=== PATIENT | female | born 1940 | race Caucasian/White ===

== ENCOUNTER → 2017-05-26 | Day surgery (SDC) | payer MEDICARE ==
[~2017-05-26] MED LIST: AMLO5TAB96 PO; LACTATED RINGER'S 1000 ML INJ 1,000 ML ONE; PROPOFOL 500 MG/50 ML BTL IV ONE; TOPR50TA PO
--- NOTE | 2017-05-26 10:49 | GIPROC ---
[facility] [address] [facility], [address] EGD PROCEDURE REPORT EXAM DATE: 05/26/2017 PATIENT NAME: Park Henley MR #: [id number] BIRTHDATE: 1940 ATTENDING: Shyanne Dash MD ORDER #: [id number] SPECIFICATIONS WRITER: Ivonne Mckinney RN STATUS: outpatient INDICATIONS: The patient is a 76 yr old female here for an EGD due to history of esophageal reflux PROCEDURE PERFORMED: EGD w/ biopsy MEDICATIONS: None and Per Anesthesia. TOPICAL ANESTHETIC: CONSENT: The patient understands the risks and benefits of the procedure and understands that these risks include, but are not limited to: sedation, allergic reaction, infection, perforation and/or bleeding. Alternative means of evaluation and treatment include, among others: physical exam, x-rays, and/or surgical intervention. The patient elects to proceed with this endoscopic procedure. medical equipment was checked for proper function. Hand hygiene and appropriate measures for infection prevention was taken. After the risks, benefits and alternatives of the procedure were thoroughly explained, Informed consent was verified, confirmed and timeout was successfully executed by the treatment team. The patient was anesthetized with topical anesthesia and the EC-3490Li ([id number]) endoscope was introduced through the mouth and advanced to the second portion of the duodenum. Retroflexed views revealed a hiatal hernia The gastroscope was then slowly withdrawn and removed. ESOPHAGUS: There was LA Class A esophagitis noted. A biopsy was performed using cold forceps. Sample sent for histology. STOMACH: There was erythematous moderate gastritis in the gastric antrum. A biopsy was performed using cold forceps. Sample sent for histology. DUODENUM: The duodenal mucosa appeared normal in the bulb and second portion of the duodenum. ADVERSE EVENTS: There were no complications. IMPRESSIONS: 1. There was LA Class A esophagitis noted; biopsy was performed 2. There was erythematous gastritis in the gastric antrum; biopsy was performed 3. Normal duodenal mucosa in the bulb and second portion of the duodenum 4. Retroflexed views revealed a hiatal hernia RECOMMENDATIONS: 1. Await biopsy results. Biopsy results will not be ready for 7-10 days. If you don't hear from us in two weeks, call our office for biopsy results. 2. Anti-reflux regimen 3. Continue PPI 4. Avoid NSAIDS PATIENT CONDITION: stable DISPOSITION: Home REPEAT EXAM: Return 1 year EGD pending biopsy results Shyanne Dash MD eSigned: Shyanne Dash MD 05/26/2017 10:48 AM cc: [facility] M.D[facility] PATIENT NAME: Park Henley MR#: [id number]
--- NOTE | 2017-05-26 11:02 | GIPROC ---
[facility] [address] [facility], [address] COLONOSCOPY PROCEDURE REPORT EXAM DATE: 05/26/2017 PATIENT NAME: Park Henley MR #: [id number] BIRTHDATE: 1940 ENDOSCOPIST: Shyanne Dash MD ORDER #: [id number] FLIGHT ATTENDANT/INFLIGHT MANAGER: Ivonne Mckinney RN STATUS: outpatient INDICATIONS: The patient is a 76 yr old female here for a colonoscopy due to average risk patient for colorectal cancer PROCEDURE PERFORMED: Colonoscopy, diagnostic MEDICATIONS: None and Per Anesthesia. PREP QUALITY: The [place] Bowel Prep Score was Right colon 3, Mid colon 2, and Left colon 3. Total = 8. ESTIMATED BLOOD LOSS: None CONSENT: The patient understands the risks and benefits of the procedure and understands that these risks include, but are not limited to: sedation, allergic reaction, infection, perforation and/or bleeding. Alternative means of evaluation and treatment include, among others: physical exam, x-rays, and/or surgical intervention. The patient elects to proceed with this endoscopic procedure. medical equipment was checked for proper function. Hand hygiene and appropriate measures for infection prevention was taken. After the risks, benefits and alternatives of the procedure were thoroughly explained, Informed consent was verified, confirmed and timeout was successfully executed by the treatment team. A digital exam revealed external hemorrhoids The EC-3490Li ([id number]) endoscope was introduced through the anus and advanced to the cecum, which was identified by both the appendix and ileocecal valve. The instrument was then slowly withdrawn as the colon was fully examined. COLON FINDINGS: Moderate diverticulosis was noted in the sigmoid colon. No bleeding was noted from the diverticulosis. Retroflexed views revealed internal hemorrhoids and Retroflexed views revealed medium internal hemorrhoids The scope was then completely withdrawn from the patient and the procedure terminated. PROCEDURE WITHDRAWAL TIME:6minutes ADVERSE EVENTS: There were no complications. IMPRESSIONS: 1. Moderate diverticulosis was noted in the sigmoid colon 2. Retroflexed views revealed internal hemorrhoids 3. Retroflexed views revealed medium internal hemorrhoids 4. Revealed external hemorrhoids RECOMMENDATIONS: 1. Benefiber 2 tsp daily 2. Continue surveillance 3. Yearly hemoccult 4. High fiber diet 5. No seeds, nuts and popcorn in diet RECALL: Return 5 years Colonoscopy Shyanne Dash MD eSigned: Shyanne Dash MD 05/26/2017 11:02 AM cc: Mary Toribio and [facility] Zamora M.D. PATIENT NAME: Park Henley MR#: [id number]
== END | disposition home or self-care (01) ==
LOC: ESDC 09:24
PROVIDERS: ATTEND Internal Medicine Gastroenterology
DX: Z12.11 Encounter for screening for malignant neoplasm of colon (principal); K64.4 Residual hemorrhoidal skin tags; K57.90 Diverticulosis of intestine, part unspecified, without perforation or abscess without bleeding; K64.8 Other hemorrhoids; K21.9 Gastro-esophageal reflux disease without esophagitis; K20.9 Esophagitis, unspecified; K29.70 Gastritis, unspecified, without bleeding; K44.9 Diaphragmatic hernia without obstruction or gangrene
CPT/HCPCS: 00740; 00810; 43239; 45378; 88305; J7120

== ENCOUNTER 2017-09-23 15:48 | Inpatient (IN) | payer MEDICARE ==
[~2017-09-23] VITALS: Ht 157.5 cm; Wt 49.4 kg
[~2017-09-23 15:48] MED LIST changes: -LACTATED RINGER'S 1000 ML INJ 1,000 ML ONE; -PROPOFOL 500 MG/50 ML BTL IV ONE
[2017-09-23 15:53] VITALS: BP 180/86; PULSE 79; RESP 16; TEMP 98.9; O2SAT 98
[2017-09-23 17:36] LABS: AUTOMATED NEUTROPHIL # 5.1 TH/MM3 (1.8-7.7); BASOPHIL # 0.1 TH/MM3 (0-0.2); BASOPHIL % 0.9 % (0.0-2.0); EOSINOPHIL # 0.1 TH/MM3 (0-0.4); EOSINOPHIL % 1.4 % (0.0-4.0); HEMATOCRIT 37.6 % (35.0-46.0); HEMOGLOBIN 12.6 GM/DL (11.6-15.3); LYMPHOCYTE # 1.7 TH/MM3 (1.0-4.8); MEAN CELL VOLUME 94.3 FL (80.0-100.0); MEAN CORPUSCULAR HEMOGLOBIN 31.7 PG (27.0-34.0); MEAN CORPUSCULAR HGB CONC 33.6 % (32.0-36.0); MEAN PLATELET VOLUME 6.7 FL (7.0-11.0); MONO % 9.9 % (0.0-8.0); MONOCYTE # 0.8 TH/MM3 (0-0.9); NEUT % 65.8 % (16.0-70.0); PLATELET COUNT 270 TH/MM3 (150-450); RED BLOOD COUNT 3.99 MIL/MM3 (4.00-5.30); RED CELL DISTRIBUTION WIDTH 12.8 % (11.6-17.2); WHITE BLOOD COUNT 7.7 TH/MM3 (4.0-11.0)
[2017-09-23 17:43] VITALS: BP 175/83; PULSE 64; RESP 16; TEMP 96.9; O2SAT 99
[2017-09-23 18:06] LABS: ALT (GPT) 23 U/L (10-53); AST (GOT) 29 U/L (15-37); BICARBONATE 26.3 MEQ/L (21.0-32.0); BLOOD UREA NITROGEN 15 MG/DL (7-18); CALCIUM 9.3 MG/DL (8.5-10.1); CHLORIDE 107 MEQ/L (98-107); CREATININE 0.92 MG/DL (0.50-1.00); GLOMERULAR FILTRATION RATE 59 ML/MIN (>89); GLUCOSE,RANDOM 88 MG/DL (74-106); SODIUM (NA) 140 MEQ/L (136-145)
[2017-09-23 18:15] LABS: ALKALINE PHOSPHATASE 64 U/L (45-117); TOTAL BILIRUBIN ADULT 1.4 MG/DL (0.2-1.0); TOTAL PROTEIN 8.1 GM/DL (6.4-8.2)
--- NOTE | 2017-09-23 19:51 | RADRPT ---
EXAM DATE/TIME: 09/23/2017 19:28 [place] COMPARISON: CT BRAIN W/O CONTRAST, April 13, 2011, 12:34. INDICATIONS : Altered mental status. RADIATION DOSE: 36.12 CTDIvol (mGy) ; Patient motion MEDICAL HISTORY : Dementia. Hypertension. SURGICAL HISTORY : Cholecystectomy. ENCOUNTER: Initial ACUITY: 1 day PAIN SCALE: 0/10 LOCATION: cranial TECHNIQUE: Multiple contiguous axial images were obtained of the head. Using automated exposure control and adj ustment of the mA and/or kV according to patient size, radiation dose was kept as low as reasonably a chievable to obtain optimal diagnostic quality images. DICOM format image data is available electro nically for review and comparison. FINDINGS: CEREBRUM: Atrophy. Extensive periventricular low attenuation change involving both cerebral hemispheres. The ve ntricles are normal for age. No evidence of midline shift, mass lesion, hemorrhage or acute infarcti on. No extra-axial fluid collections are seen. POSTERIOR FOSSA: The cerebellum and brainstem are intact. The 4th ventricle is midline. The cerebellopontine angle i s unremarkable. EXTRACRANIAL: The visualized portion of the orbits is intact. SKULL: The calvaria is intact. No evidence of skull fracture. CONCLUSION: 1. No acute intracranial abnormality. 2. Extensive chronic small vessel ischemic change. 3. Atrophy. Shankar Chairez Jr., MD on September 23, 2017 at 19:47 Board Certified Radiologist. This report was verified electronically.
[2017-09-23 20:07] LABS: BACTERIA, URINE RARE /hpf; BILIRUBIN, URINE NEG (NEG); BLOOD, URINE NEG (NEG); GLUCOSE,URINE NEG (NEG); KETONE, URINE NEG (NEG); NITRITE,URINE NEG (NEG); PH, URINE 6.5 (5.0-8.5); SQUAMOUS EPITHELIAL CELL URINE <1 /hpf (0-5); URINE COLOR LIGHT-YELLOW (YELLW/STRAW); URINE LEUKOCYTE ESTERASE LARGE (NEG)
[2017-09-23] MEDS ORDERED: MACR100C2 PO (21:14)
[2017-09-23] MEDS ORDERED: NITROFURANTOIN MONOHYD MACROCR 100 MG CAP PO ONE (21:15)
--- NOTE | 2017-09-23 22:13 | PD ---
HPI Chief Complaint: Medical Clearance Time Seen by Provider: 19:21 Travel History International Travel<30 days: No Contact w/Intl Traveler<30days: No Traveled to known affect area: No History of Present Illness HPI 77-year-old white female presents emergency department on a voluntary basis for psychological evaluation. The patient was advised by her psychologist to come in to be evaluated. The patient gone to see her psychologist earlier today because of progressive worsening problems with confusion and performing daily activities. She's been having worsening expressive aphasia. Symptoms of an slowly progressively getting worse over the past year. She's been having problems communicating with her family. Her family feels that she is taking too much Xanax. Family according to the patient drinks too much and does not involve himself in her care normally. Patient still drives. This was a concern of the family as well. Patient states that she has typically been able to care for everyone else but herself. She's having problems with some depression. She has not been eating the way she should. She states that she has not been taking care of herself the way she normally does. Patient denies any suicidal homicidal ideation. Patient does have some increased urinary frequency and some mild dysuria. She denies any recent illness. No fever or chills. No chest pain or shortness of breath. No nausea vomiting. No abdominal pain PFSH Past Medical History Arthritis: Yes (OSTEO) Autoimmune Disease: Yes (RA) Anxiety: Yes Cancer: No Cardiovascular Problems: Yes (HTN) Dementia: Yes Endocrine: No Genitourinary: Yes Hypertension: Yes Immune Disorder: Yes Kidney Stones: Yes (1979) Musculoskeletal: No Neurologic: No Psychiatric: Yes (CLAUSTROPHOBIA) Reproductive: No Respiratory: No Tetanus Vaccination: Unknown Influenza Vaccination: No Menopausal: Yes Past Surgical History Abdominal Surgery: No Cardiac Surgery: No Cholecystectomy: Yes Ear Surgery: No Endocrine Surgery: No Eye Surgery: No Genitourinary Surgery: Yes Gynecologic Surgery: No Joint Replacement: Yes (L hip replacement) Oral Surgery: No Thoracic Surgery: No Other Surgery: Yes (R KIDNEY) Social History Alcohol Use: No Tobacco Use: No Substance Use: No Allergies-Medications (Allergen,Severity, Reaction): Coded Allergies: No Known Allergies (Verified Allergy, Unknown, 09/23/17) Reported Meds & Prescriptions Reported Meds & Active Scripts Active Macrobid (Nitrofurantoin Monoh/Nitrofur Macro) 100 Mg Cap 100 Mg PO BID 7 Days Reported Norvasc (Amlodipine Besylate) 5 Mg Tab 5 Mg PO DAILY Toprol Xl (Metoprolol Succinate) 50 Mg Tabcr 50 Mg PO DAILY Review of Systems Except as stated in HPI: all other systems reviewed are Neg Physical Exam Narrative GENERAL: Well-nourished, well-developed patient. SKIN: Warm and dry. HEAD: Normocephalic and atraumatic. EYES: No scleral icterus. No injection or drainage. ENT: No nasal drainage noted. Mucous membranes pink. Airway patent. NECK: Supple, trachea midline. Moves head freely without obvious discomfort. CARDIOVASCULAR: Regular rate and rhythm without murmurs, gallops, or rubs. RESPIRATORY: Breath sounds equal bilaterally. No accessory muscle use. GASTROINTESTINAL: Abdomen soft, non-tender, nondistended. EXTREMITIES: No cyanosis or edema. BACK: Nontender without obvious deformity. No CVA tenderness. NEURO: Patient is alert and oriented. no sensorimotor deficits. Nonfocal. Normal speech. Patient does have noted expressive aphasia. PSYCH: No delusions. No auditory or visual hallucinations. Data Data Last Documented VS Vital Signs Date Time Temp Pulse Resp B/P (MAP) Pulse Ox O2 Delivery O2 Flow Rate FiO2 09/23/17 17:43 96.9 64 16 175/83 (113) 99 Room Air Orders Orders Complete Blood Count With Diff (09/23/17 16:09) Comprehensive Metabolic Panel (09/23/17 16:09) Thyroid Stimulating Hormone (09/23/17 16:09) Urinalysis - C+S If Indicated (09/23/17 16:09) Psych Screen (09/23/17 16:09) Diet Regular Basic (09/23/17 Dinner) Ct Brain W/O Iv Contrast(Rout) (09/23/17 19:18) Drug Screen, Random Urine (09/23/17 19:20) Alcohol (Ethanol) (09/23/17 19:20) Urine Culture (09/23/17 19:43) Nitrofurantoin Monohyd Macrocr (Macrobid (09/23/17 21:15) Labs Laboratory Tests Test 09/23/17 16:50 09/23/17 19:43 White Blood Count 7.7 TH/MM3 Red Blood Count 3.99 MIL/MM3 Hemoglobin 12.6 GM/DL Hematocrit 37.6 % Mean Corpuscular Volume 94.3 FL Mean Corpuscular Hemoglobin 31.7 PG Mean Corpuscular Hemoglobin Concent 33.6 % Red Cell Distribution Width 12.8 % Platelet Count 270 TH/MM3 Mean Platelet Volume 6.7 FL Neutrophils (%) (Auto) 65.8 % Lymphocytes (%) (Auto) 22.0 % Monocytes (%) (Auto) 9.9 % Eosinophils (%) (Auto) 1.4 % Basophils (%) (Auto) 0.9 % Neutrophils # (Auto) 5.1 TH/MM3 Lymphocytes # (Auto) 1.7 TH/MM3 Monocytes # (Auto) 0.8 TH/MM3 Eosinophils # (Auto) 0.1 TH/MM3 Basophils # (Auto) 0.1 TH/MM3 CBC Comment DIFF FINAL Differential Comment Blood Urea Nitrogen 15 MG/DL Creatinine 0.92 MG/DL Random Glucose 88 MG/DL Total Protein 8.1 GM/DL Albumin 4.0 GM/DL Calcium Level 9.3 MG/DL Alkaline Phosphatase 64 U/L Aspartate Amino Transf (AST/SGOT) 29 U/L Alanine Aminotransferase (ALT/SGPT) 23 U/L Total Bilirubin 1.4 MG/DL Sodium Level 140 MEQ/L Potassium Level 3.9 MEQ/L Chloride Level 107 MEQ/L Carbon Dioxide Level 26.3 MEQ/L Anion Gap 7 MEQ/L Estimat Glomerular Filtration Rate 59 ML/MIN Thyroid Stimulating Hormone 3rd Gen 1.430 uIU/ML Ethyl Alcohol Level LESS THAN 3 MG/DL Urine Color LIGHT-YELLOW Urine Turbidity CLEAR Urine pH 6.5 Urine Specific [place] 1.005 Urine Protein NEG mg/dL Urine Glucose (UA) NEG mg/dL Urine Ketones NEG mg/dL Urine Occult Blood NEG Urine Nitrite NEG Urine Bilirubin NEG Urine Urobilinogen LESS THAN 2.0 MG/DL Urine Leukocyte Esterase LARGE Urine RBC 2 /hpf Urine WBC 18 /hpf Urine Squamous Epithelial Cells <1 /hpf Urine Bacteria RARE /hpf Microscopic Urinalysis Comment CULTURE INDICATED Urine Opiates Screen NEG Urine Barbiturates Screen NEG Urine Amphetamines Screen NEG Urine Benzodiazepines Screen NEG Urine Cocaine Screen NEG Urine Cannabinoids Screen NEG MDM Medical Decision Making Medical Screen Exam Complete: Yes Emergency Medical Condition: Yes Medical Record Reviewed: Yes Interpretation(s) Laboratory Tests Test 09/23/17 16:50 09/23/17 19:43 White Blood Count 7.7 TH/MM3 Red Blood Count 3.99 MIL/MM3 Hemoglobin 12.6 GM/DL Hematocrit 37.6 % Mean Corpuscular Volume 94.3 FL Mean Corpuscular Hemoglobin 31.7 PG Mean Corpuscular Hemoglobin Concent 33.6 % Red Cell Distribution Width 12.8 % Platelet Count 270 TH/MM3 Mean Platelet Volume 6.7 FL Neutrophils (%) (Auto) 65.8 % Lymphocytes (%) (Auto) 22.0 % Monocytes (%) (Auto) 9.9 % Eosinophils (%) (Auto) 1.4 % Basophils (%) (Auto) 0.9 % Neutrophils # (Auto) 5.1 TH/MM3 Lymphocytes # (Auto) 1.7 TH/MM3 Monocytes # (Auto) 0.8 TH/MM3 Eosinophils # (Auto) 0.1 TH/MM3 Basophils # (Auto) 0.1 TH/MM3 CBC Comment DIFF FINAL Differential Comment Blood Urea Nitrogen 15 MG/DL Creatinine 0.92 MG/DL Random Glucose 88 MG/DL Total Protein 8.1 GM/DL Albumin 4.0 GM/DL Calcium Level 9.3 MG/DL Alkaline Phosphatase 64 U/L Aspartate Amino Transf (AST/SGOT) 29 U/L Alanine Aminotransferase (ALT/SGPT) 23 U/L Total Bilirubin 1.4 MG/DL Sodium Level 140 MEQ/L Potassium Level 3.9 MEQ/L Chloride Level 107 MEQ/L Carbon Dioxide Level 26.3 MEQ/L Anion Gap 7 MEQ/L Estimat Glomerular Filtration Rate 59 ML/MIN Thyroid Stimulating Hormone 3rd Gen 1.430 uIU/ML Ethyl Alcohol Level LESS THAN 3 MG/DL Urine Color LIGHT-YELLOW Urine Turbidity CLEAR Urine pH 6.5 Urine Specific [place] 1.005 Urine Protein NEG mg/dL Urine Glucose (UA) NEG mg/dL Urine Ketones NEG mg/dL Urine Occult Blood NEG Urine Nitrite NEG Urine Bilirubin NEG Urine Urobilinogen LESS THAN 2.0 MG/DL Urine Leukocyte Esterase LARGE Urine RBC 2 /hpf Urine WBC 18 /hpf Urine Squamous Epithelial Cells <1 /hpf Urine Bacteria RARE /hpf Microscopic Urinalysis Comment CULTURE INDICATED Urine Opiates Screen NEG Urine Barbiturates Screen NEG Urine Amphetamines Screen NEG Urine Benzodiazepines Screen NEG Urine Cocaine Screen NEG Urine Cannabinoids Screen NEG Last [address] 09/23/171917 Signed Impressions: Service Date/Time: Saturday, September 23, 2017 19:28 - CONCLUSION: 1. No acute intracranial abnormality. 2. Extensive chronic small vessel ischemic change. 3. Atrophy. Shankar Chairez Jr., MD Differential Diagnosis MDM: High Differential diagnoses: Schizophrenia, schizoaffective disorder, bipolar, anxiety, depression, adjustment reaction, mood disorder NOS, ODD, depressive disorder NOS, dementia, dementia with agitation, psychosis NOS, substance induced mood disorder, DMDD, Asperger syndrome, infection,electrolyte abnormality, malingering. Narrative Course Mental health screening discussed with the patient. Psychiatric screen ordered. The patient has been medically cleared. She does have a urinary tract infection. She is given Macrobid 100 mg by mouth and a prescription for 1 week. I do not believe that her symptoms have presented her today are directly related to her urinary tract infection. 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 The patient will be allowed to stay here in the ER and will see the psychiatrist in the morning on a voluntary basis. This is medical clearance for psychiatric admission, UTI Diagnosis Primary Impression: Medical clearance for psychiatric admission Additional Impression: urinary tract infection Scripts Nitrofurantoin Monohydrate Macrocrystals (Macrobid) 100 Mg Cap 100 MG PO BID for Infection for 7 Days, #14 CAP 0 Refills Prov: Rohit Landeros MD 09/23/17 Condition: Stable Ron Nava Sep 23, 2017 22:13
[2017-09-24 02:20] VITALS: BP 144/82; PULSE 57; RESP 18; TEMP 97.3; O2SAT 57; O2SAT 97
[2017-09-24 06:44] VITALS: RESP 18
[2017-09-24 09:50] VITALS: BP 138/78; PULSE 62; RESP 16; TEMP 98.6; O2SAT 96
[2017-09-24] MEDS ORDERED: ALUMINUM/MAGNESIUM/SIMETH 30 ML CUP PO PRN (11:15)
[2017-09-24] MEDS ORDERED: MAGNESIUM HYDROXIDE SUSP 30 ML CUP PO PRN (11:15)
[2017-09-24] MEDS ORDERED: ACETAMINOPHEN 325 MG TAB PO PRN (11:15)
[2017-09-24] MEDS ORDERED: LORazepam 1 MG TAB PO PRN (11:15)
[2017-09-24] MEDS ORDERED: LORazepam 2 MG/ML VIAL IM PRN (11:15)
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
[2017-09-24] MEDS ORDERED: cloNIDine HCL 0.1 MG TAB PO PRN (12:30)
[2017-09-24 12:45] VITALS: BP 149/68; PULSE 66; RESP 16; TEMP 98; O2SAT 97
[2017-09-24] MEDS: METOPROLOL SUCCINATE 50 MG EXTENDED RELEASE TAB PO SCH (13:31)
[2017-09-24] MEDS: amLODIPine BESYLATE 5 MG TAB PO SCH (13:32)
--- NOTE | 2017-09-24 15:51 | PD.CONS ---
[facility] By [facility] KOWALSKI Reason for Consult MEDICAL MANAGEMENT AND HYPERTENSION AND UTI Primary Care Physician No Primary Care Physician Diagnoses: (1) Rheumatoid arthritis (2) Osteoarthritis (3) UTI (urinary tract infection) (4) Hypertension (5) Dementia in other diseases classified elsewhere with behavioral disturbance (6) Alzheimer's dementia with behavioral disturbance History of Present Illness Patient is a 77-year-old female. Who presents through the emergency department and has been admitted to the psychiatric unit for advancing dementia. There was some concerns of her having some expressive aphasia. In becoming progressively demented. Supposedly patient still drives a car was brought into the hospital for psychiatric management We have been consult for help with her medical management Was found to have urinary tract infection and history of hypertension and dementia Review of Systems Constitutional: COMPLAINS OF: Change in appetite, DENIES: Diaphoretic episodes , Fatigue, Fever, Weight gain, Weight loss, Chills, Dizziness Endocrine: DENIES: Abnorml menstrual pattern, Heat/cold intolerance, Polydipsia Eyes: DENIES: Blurred vision, Diplopia, Eye inflammation, Eye pain Ears, nose, mouth, throat: DENIES: Tinnitus, Hearing loss, Nasal discharge Respiratory: DENIES: Apneas, Cough, Snoring, Wheezing Cardiovascular: DENIES: Chest pain, Palpitations, Syncope, Dyspnea on Exertion Gastrointestinal: DENIES: Abdominal pain, Black stools, Bloody stools, Constipation Genitourinary: DENIES: Abnormal vaginal bleeding, Dysmenorrhea, Dyspareunia Musculoskeletal: DENIES: Joint pain, Muscle aches, Stiffness, Joint Swelling Integumentary: DENIES: Abnormal pigmentation, Pruritus, Rash Hematologic/lymphatic: DENIES: Bruising, Lymphadenopathy Immunologic/allergic: DENIES: Eczema, Urticaria Neurologic: COMPLAINS OF: Abnormal gait, DENIES: Headache, Localized weakness, Paresthesias Psychiatric: COMPLAINS OF: Anxiety, Confusion, Mood changes, Depression, Agitation, DENIES: Hallucinations Except as stated in HPI: all other systems reviewed are Neg Past Family Social History Allergies: Coded Allergies: No Known Allergies (Verified Allergy, Unknown, 09/23/17) Past Medical History Hypertension Osteoarthritis Rheumatoid arthritis Dementia Kidney stones on the right Past Surgical History Cataract surgery bilaterally CoHOLEcystectomy Left hip surgery History of kidney stone on the right with a stent Reported Medications Reported Meds & Active Scripts Active Macrobid (Nitrofurantoin Monoh/Nitrofur Macro) 100 Mg Cap 100 Mg PO BID 7 Days Reported Norvasc (Amlodipine Besylate) 5 Mg Tab 5 Mg PO DAILY Toprol Xl (Metoprolol Succinate) 50 Mg Tabcr 50 Mg PO DAILY Active Ordered Medications Current Medications Nitrofurantoin Macrocrystals (Macrobid) 100 mg ONCE ONCE PO Last administered on 09/23/17at 21:15; Start 09/23/17 at 21:15; Stop 09/23/17 at 21:18; Status DC Lorazepam (Ativan) 1 mg Q6H PRN PO MODERATE TO SEVERE ANXIETY; Start 09/24/17 at 11:15 Lorazepam (Ativan Inj) 1 mg Q6H PRN IM MODERATE TO SEVERE ANXIETY; Start at 11:15 Acetaminophen (Tylenol) 650 mg Q4H PRN PO Pain 1-5 or Temp >101F; Start at 11:15 Magnesium Hydroxide (Milk Of Magnesia Liq) 30 ml DAILY PRN PO CONSTIPATION; Start 09/24/17 at 11:15 Al Hydrox/Mg Hydrox/Simethicone (Mag-Al Plus Susp Liq) 30 ml Q6H PRN PO DYSPEPSIA; Start 09/24/17 at 11:15 Nitrofurantoin Macrocrystals (Macrobid) 100 mg BIDPC PO ; Start 09/24/17 at 18: 00; Stop 10/01/17 at 17:59 Amlodipine Besylate (Norvasc) 5 mg DAILY PO ; Start 09/25/17 at 09:00; Stop at 09:00; Status DC Metoprolol Succinate (Toprol Xl) 50 mg DAILY PO ; Start 09/25/17 at 09:00; Stop 09/25/17 at 09:00; Status DC Clonidine (Catapres) 0.1 mg Q4H PRN PO SBP>160, DBP>90; Start 09/24/17 at 12:30 Amlodipine Besylate (Norvasc) 5 mg DAILY PO Last administered on 09/24/17at 13: 32; Start 09/24/17 at 12:30 Metoprolol Succinate (Toprol Xl) 50 mg DAILY PO Last administered on 09/24/17at 13:31; Start 09/24/17 at 12:30 Family History No psychiatric history from what can be obtained from the patient patient is a very poor historian Social History No tobacco alcohol or illicits recently Physical Exam Vital Signs Vital Signs Date Time Temp Pulse Resp B/P (MAP) Pulse Ox O2 Delivery O2 Flow Rate FiO2 09/24/17 13:03 09/24/17 12:45 98.0 66 16 149/68 (95) 97 09/24/17 09:50 98.6 62 16 138/78 (98) 96 Room Air 09/24/17 06:44 18 09/24/17 02:20 97.3 57 18 144/82 (102) 97 Room Air 09/23/17 17:43 96.9 64 16 175/83 (113) 99 Room Air 09/23/17 15:53 98.9 79 16 180/86 (117) 98 Physical Exam GENERAL: This is a well-nourished, well-developed patient, in no apparent distress. SKIN: No rashes, ecchymoses or lesions. Cool and dry. HEAD: Atraumatic. Normocephalic. No temporal or scalp tenderness. EYES: Pupils equal round and reactive. Extraocular motions intact. No scleral icterus. No injection or drainage. ENT: Nose without bleeding, purulent drainage or septal hematoma. Throat without erythema, tonsillar hypertrophy or exudate. Uvula midline. Airway patent. NECK: Trachea midline. No JVD or lymphadenopathy. Supple, nontender, no meningeal signs. CARDIOVASCULAR: Regular rate and rhythm without murmurs, gallops, or rubs. S1 and S2 no S3 or S4 RESPIRATORY: Clear to auscultation. Breath sounds equal bilaterally. No wheezes , rales, or rhonchi. GASTROINTESTINAL: Abdomen soft, non-tender, nondistended. No hepato-splenomegaly , or palpable masses. No guarding. MUSCULOSKELETAL: Extremities without clubbing, cyanosis, or edema. No joint tenderness, effusion, or edema noted. No calf tenderness. Negative Homans sign bilaterally. NEUROLOGICAL: Awake and alert. Cranial nerves II through XII intact. Motor and sensory grossly within normal limits. 4 out of 5 muscle strength in all muscle groups. ABNormal speech. Insight and judgment is limited Mood and behavior is abnormal Laboratory Laboratory Tests Test 09/23/17 16:50 09/23/17 19:43 White Blood Count 7.7 Red Blood Count 3.99 Hemoglobin 12.6 Hematocrit 37.6 Mean Corpuscular Volume 94.3 Mean Corpuscular Hemoglobin 31.7 Mean Corpuscular Hemoglobin Concent 33.6 Red Cell Distribution Width 12.8 Platelet Count 270 Mean Platelet Volume 6.7 Neutrophils (%) (Auto) 65.8 Lymphocytes (%) (Auto) 22.0 Monocytes (%) (Auto) 9.9 Eosinophils (%) (Auto) 1.4 Basophils (%) (Auto) 0.9 Neutrophils # (Auto) 5.1 Lymphocytes # (Auto) 1.7 Monocytes # (Auto) 0.8 Eosinophils # (Auto) 0.1 Basophils # (Auto) 0.1 CBC Comment DIFF FINAL Differential Comment Blood Urea Nitrogen 15 Creatinine 0.92 Random Glucose 88 Total Protein 8.1 Albumin 4.0 Calcium Level 9.3 Alkaline Phosphatase 64 Aspartate Amino Transf (AST/SGOT) 29 Alanine Aminotransferase (ALT/SGPT) 23 Total Bilirubin 1.4 Sodium Level 140 Potassium Level 3.9 Chloride Level 107 Carbon Dioxide Level 26.3 Anion Gap 7 Estimat Glomerular Filtration Rate 59 Thyroid Stimulating Hormone 3rd Gen 1.430 Ethyl Alcohol Level LESS THAN 3 Urine Color LIGHT-YELLOW Urine Turbidity CLEAR Urine pH 6.5 Urine Specific [place] 1.005 Urine Protein NEG Urine Glucose (UA) NEG Urine Ketones NEG Urine Occult Blood NEG Urine Nitrite NEG Urine Bilirubin NEG Urine Urobilinogen LESS THAN 2.0 Urine Leukocyte Esterase LARGE Urine RBC 2 Urine WBC 18 Urine Squamous Epithelial Cells <1 Urine Bacteria RARE Microscopic Urinalysis Comment CULTURE INDICATED Urine Opiates Screen NEG Urine Barbiturates Screen NEG Urine Amphetamines Screen NEG Urine Benzodiazepines Screen NEG Urine Cocaine Screen NEG Urine Cannabinoids Screen NEG Date/Time Source Procedure Growth Status 09/23/17 19:43 Urine Random Urine Urine Culture - Preliminary NO GROWTH IN 24 HOURS. Resulted Result Diagram: 09/23/17 1650 09/23/17 1650 Imaging Last Impressions Head CT 09/23/17 1918 Signed Impressions: Service Date/Time: Saturday, September 23, 2017 19:28 - CONCLUSION: 1. No acute intracranial abnormality. 2. Extensive chronic small vessel ischemic change. 3. Atrophy. Shankar Chairez Jr., MD Assessment and Plan Assessment and Plan Dementia with psychiatric features and depression defer to psychiatry Hypertension resume her home medications with the beta kerri and the Norvasc Urinary tract infection with positive urine findings started on Macrobid twice a day A.m. labs Discussed with patient and RN Code Status Full code Discussed Condition With RN and patient Stephen Higgins DO Sep 24, 2017 15:51
[2017-09-24] MEDS: NITROFURANTOIN MONOHYD MACROCR 100 MG CAP PO SCH (17:32)
[2017-09-24 18:00] VITALS: BP 145/66; PULSE 65; RESP 18; TEMP 98; O2SAT 95
[2017-09-25 05:45] VITALS: BP 160/70; PULSE 62; RESP 17; TEMP 98.3; O2SAT 98
[2017-09-25 08:35] LABS: AUTOMATED NEUTROPHIL # 5.1 TH/MM3 (1.8-7.7); BASOPHIL # 0.1 TH/MM3 (0-0.2); BASOPHIL % 0.8 % (0.0-2.0); EOSINOPHIL # 0.2 TH/MM3 (0-0.4); EOSINOPHIL % 2.5 % (0.0-4.0); HEMATOCRIT 39.2 % (35.0-46.0); HEMOGLOBIN 13.3 GM/DL (11.6-15.3); LYMPH % 22.7 % (9.0-44.0); LYMPHOCYTE # 1.8 TH/MM3 (1.0-4.8); MEAN CELL VOLUME 92.1 FL (80.0-100.0); MEAN CORPUSCULAR HEMOGLOBIN 31.3 PG (27.0-34.0); MEAN PLATELET VOLUME 7.1 FL (7.0-11.0); MONO % 10.4 % (0.0-8.0); MONOCYTE # 0.8 TH/MM3 (0-0.9); NEUT % 63.6 % (16.0-70.0); PLATELET COUNT 282 TH/MM3 (150-450); RED BLOOD COUNT 4.26 MIL/MM3 (4.00-5.30); RED CELL DISTRIBUTION WIDTH 12.9 % (11.6-17.2)
[2017-09-25 08:40] LABS: ALBUMIN 3.8 GM/DL (3.4-5.0); AST (GOT) 25 U/L (15-37); BICARBONATE 25.3 MEQ/L (21.0-32.0); BLOOD UREA NITROGEN 14 MG/DL (7-18); CALCIUM 9.3 MG/DL (8.5-10.1); CHLORIDE 107 MEQ/L (98-107); CHOLESTEROL 192 MG/DL (120-200); CREATININE 0.79 MG/DL (0.50-1.00); GLOMERULAR FILTRATION RATE 70 ML/MIN (>89); GLUCOSE,RANDOM 103 MG/DL (74-106); SODIUM (NA) 141 MEQ/L (136-145)
[2017-09-25] MEDS ORDERED: METOPROLOL SUCCINATE 50 MG EXTENDED RELEASE TAB PO SCH (09:00)
[2017-09-25] MEDS ORDERED: amLODIPine BESYLATE 5 MG TAB PO SCH (09:00)
[2017-09-25 09:05] LABS: ALKALINE PHOSPHATASE 58 U/L (45-117); ALT (GPT) 21 U/L (10-53); CHOLESTEROL/ HDL RATIO 2.64 RATIO; FREE T4 1.15 NG/DL (0.76-1.46); HDL CHOLESTEROL 72.6 MG/DL (40.0-60.0); LDL CHOLESTEROL 105 MG/DL (0-99); MAGNESIUM 2.1 MG/DL (1.5-2.5); PHOSPHORUS 3.3 MG/DL (2.5-4.9); TOTAL BILIRUBIN ADULT 1.1 MG/DL (0.2-1.0); TOTAL PROTEIN 7.9 GM/DL (6.4-8.2); TRIGLYCERIDES 70 MG/DL (42-150)
[2017-09-25] MEDS: NITROFURANTOIN MONOHYD MACROCR 100 MG CAP PO SCH ×2 (09:22→17:30)
[2017-09-25 09:23] VITALS: BP 137/60
[2017-09-25] MEDS: amLODIPine BESYLATE 5 MG TAB PO SCH (09:23)
[2017-09-25] MEDS: METOPROLOL SUCCINATE 50 MG EXTENDED RELEASE TAB PO SCH (09:24)
[2017-09-25] MEDS ORDERED: diphenhydrAMINE HCL 50 MG CAP PO PRN (12:15)
[2017-09-25] MEDS ORDERED: hydrOXYzine HCL 50 MG TAB PO PRN (12:15)
--- NOTE | 2017-09-25 12:43 | HHI.PYPN ---
Subjective Remarks This patient initially admitted by Dr. David Mckay who did the initial psychiatric assessment. I have done the initial psychiatric admitting template orders, and review of medication reconciliation. Patient seen by me today she is alert diffusely disoriented to place time and situation. She shows no insight into this. She was little insight into the dangerousness of some of her behaviors including operating an automobile. She has been no behavioral problems on the unit at this time. Dr. Mckay has signed first opinion petition supporting Denise moreno and the also is recommending health care surrogate and guardian advocate. I agree patient does meet criteria for involuntary psychiatric hospitalization thus will cosign second opinion petition supporting Denise moreno will have counselor attempt to reach patient's family. Further information and to discuss possible placement issues Review of Systems Except as stated in HPI: all other systems reviewed are Neg Mental Status Examination Appearance: Disheveled Consciousness: Alert Orientation: Person Motor Activity: Normal gait Speech: Hesitant Language: Other Fund of Knowledge: Inadequate Attention and Concentration: Easily Distracted Memory: Impaired Mood: Anxious Affect: Anxious Thought Process & Associations: Circumstantial, Disorganized, Tangential, Other Thought Content: Bizarre thinking, Preoccupations Hallucination Type: None Delusion Type: None Suicidal Ideation: No Suicidal Plan: No Suicidal Intention: No Homicidal Ideation: No Homicidal Plan: No Homicidal Intention: No Insight: Poor Judgment: Poor Results Labs Test 09/25/17 07:37 White Blood Count 8.0 TH/MM3 Red Blood Count 4.26 MIL/MM3 Hemoglobin 13.3 GM/DL Hematocrit 39.2 % Mean Corpuscular Volume 92.1 FL Mean Corpuscular Hemoglobin 31.3 PG Mean Corpuscular Hemoglobin Concent 34.0 % Red Cell Distribution Width 12.9 % Platelet Count 282 TH/MM3 Mean Platelet Volume 7.1 FL Neutrophils (%) (Auto) 63.6 % Lymphocytes (%) (Auto) 22.7 % Monocytes (%) (Auto) 10.4 % Eosinophils (%) (Auto) 2.5 % Basophils (%) (Auto) 0.8 % Neutrophils # (Auto) 5.1 TH/MM3 Lymphocytes # (Auto) 1.8 TH/MM3 Monocytes # (Auto) 0.8 TH/MM3 Eosinophils # (Auto) 0.2 TH/MM3 Basophils # (Auto) 0.1 TH/MM3 CBC Comment DIFF FINAL Differential Comment Blood Urea Nitrogen 14 MG/DL Creatinine 0.79 MG/DL Random Glucose 103 MG/DL Total Protein 7.9 GM/DL Albumin 3.8 GM/DL Calcium Level 9.3 MG/DL Phosphorus Level 3.3 MG/DL Magnesium Level 2.1 MG/DL Alkaline Phosphatase 58 U/L Aspartate Amino Transf (AST/SGOT) 25 U/L Alanine Aminotransferase (ALT/SGPT) 21 U/L Total Bilirubin 1.1 MG/DL Sodium Level 141 MEQ/L Potassium Level 4.0 MEQ/L Chloride Level 107 MEQ/L Carbon Dioxide Level 25.3 MEQ/L Anion Gap 9 MEQ/L Estimat Glomerular Filtration Rate 70 ML/MIN Triglycerides Level 70 MG/DL Cholesterol Level 192 MG/DL LDL Cholesterol 105 MG/DL HDL Cholesterol 72.6 MG/DL Cholesterol/HDL Ratio 2.64 RATIO Vitamin B12 Level 565 PG/ML 25-Hydroxy Vitamin D Total 14.9 ng/ML Free Thyroxine 1.15 NG/DL Thyroid Stimulating Hormone 3rd Gen 2.320 uIU/ML Date/Time Source Procedure Growth Status 09/23/17 19:43 Urine Random Urine Urine Culture - Final 10-50,000 CFU/ML MIXED GRAM POSITIVE ... Complete Vitals/IOs Vital Signs Date Time Temp Pulse Resp B/P (MAP) Pulse Ox O2 Delivery O2 Flow Rate FiO2 09/25/17 09:23 137/60 (85) 09/25/17 05:45 98.3 62 17 98 09/24/17 09:50 Room Air Assessment & Plan Problem List: (1) Alzheimer's dementia with behavioral disturbance ICD Codes: G30.9 - Alzheimer's disease, unspecified; F02.81 - Dementia in other diseases classified elsewhere with behavioral disturbance (2) Dementia in other diseases classified elsewhere with behavioral disturbance ICD Codes: F02.81 - Dementia in other diseases classified elsewhere with behavioral disturbance Assessment & Plan Estimated LOS: days patient continues confused and demented, though no significant behavioral problems at this time except for some mild verbal intrusiveness. She is compliant with the medications. For now continue treatment. Attempt to arrange meetings with family to discuss further treatment issues medication and placement issues Justification for Cont. Inpt. At this time patient will decompensate if placed in the lower level of care Discharge Planning Need to work and patient's family related to placement issues Request HC Surrog/Guard Advoc?: Yes Problem Qualifiers (1) Alzheimer's dementia with behavioral disturbance: Qualified Codes: G30.1 - Alzheimer's disease with late onset; F02.81 - Dementia in other diseases classified elsewhere with behavioral disturbance Hernandez Bauer MD Sep 25, 2017 12:43
[2017-09-25] MEDS: CHOLECALCIFEROL (VIT D3) 5000 UNIT CAP PO SCH (14:30)
--- NOTE | 2017-09-25 15:03 | EKG ---
Date Performed: 09/25/2017 Time Performed: 13:43:35 PTAGE: 77 years EKG: SINUS BRADYCARDIA INCOMPLETE RIGHT BUNDLE BRANCH BLOCK LEFT ANTERIOR FASCICULAR BLOCK MODER ATE VOLTAGE CRITERIA FOR LVH, CONSIDER NORMAL VARIANT MODERATE ST DEPRESSION ABNORMAL ECG Compared to prior electrocardiogram, incomplete right bundle branch block is now present PREVIOUS TRACING : 04/13/2011 12.26 DOCTOR: Anton Bee Interpretating Date/Time 09/25/2017 15:01:57
--- NOTE | 2017-09-25 15:52 | HHI.PR ---
Subjective Remarks Follow-up visit dementia, HTN, osteoarthritis. Patient seen and examined today walking around the unit. Reports she is doing well. Patient is repetitive and confuse but able to follow commands and very pleasant. Denies pain and discomfort. Denies SOB/ dyspnea. Denies chest pain, palpitations, headaches, dizziness. Denies fevers, chills, n/v/d. Denies dysuria. Objective Vitals Vital Signs Date Time Temp Pulse Resp B/P (MAP) Pulse Ox O2 Delivery O2 Flow Rate FiO2 09/25/17 09:23 137/60 (85) 09/25/17 05:45 98.3 62 17 160/70 (100) 98 09/24/17 18:00 98.0 65 18 145/66 (92) 95 I/O 09/24/17 09/24/17 09/24/17 09/25/17 09/25/17 09/25/17 07:00 15:00 23:00 07:00 15:00 23:00 Intake Total 480 ml 240 ml Balance 480 ml 240 ml Intake Oral 480 ml 240 ml # Voids 1 2 Result Diagram: 09/25/17 0737 09/25/17 0737 Imaging Last Impressions Head CT 09/23/171917 Signed Impressions: Service Date/Time: Saturday, September 23, 2017 19:28 - CONCLUSION: 1. No acute intracranial abnormality. 2. Extensive chronic small vessel ischemic change. 3. Atrophy. Shankar Chairez Jr., MD Objective Remarks GENERAL: This is a well-nourished, well-developed patient, in no apparent distress. SKIN: Warm and dry HEENT: Normocephalic. Pupils equal round and reactive. Nose without bleeding. Airway patent. NECK: Trachea midline. CARDIOVASCULAR: Regular rate and rhythm without murmurs, gallops, or rubs. RESPIRATORY: Clear to auscultation. Breath sounds equal bilaterally. No wheezes , rales, or rhonchi. GASTROINTESTINAL: Abdomen soft, non-tender, nondistended. Bowel Sounds normoactive x4. MUSCULOSKELETAL: Extremities without clubbing, cyanosis, or edema. NEUROLOGICAL: Awake and alert. Oriented to person. Confused. No focal neuro deficit. Moves all extremities. Normal speech. A/P Problem List: (1) Rheumatoid arthritis ICD Code: M06.9 - Rheumatoid arthritis, unspecified (2) Osteoarthritis ICD Code: M19.90 - Unspecified osteoarthritis, unspecified site (3) UTI (urinary tract infection) ICD Code: N39.0 - Urinary tract infection, site not specified (4) Hypertension ICD Code: I10 - Essential (primary) hypertension (5) Dementia in other diseases classified elsewhere with behavioral disturbance ICD Code: F02.81 - Dementia in other diseases classified elsewhere with behavioral disturbance (6) Alzheimer's dementia with behavioral disturbance ICD Code: G30.9 - Alzheimer's disease, unspecified; F02.81 - Dementia in other diseases classified elsewhere with behavioral disturbance Assessment and Plan Patient is a 77-year-old female admitted to the hospital secondary to advancing dementia. Now admitted to inpatient psychiatry unit for further evaluation. Consulted for medical management. Dementia - Managed by psychiatry team HTN - Continue with home medication which are for 50 mg daily, amlodipine 5 mg daily - BP trend within normal. Continue to monitor. Vitamin D insufficiency - Start supplementation vitamin D - Recheck in 3 months in outpatient setting. UTI - UA was abnormal. She was started on Macrobid twice a day - Cultures came back 10-50,000 mixed gram-positive elise probable contaminants - Decreased Macrobid twice a day days to 5 days only DVT prop ambulatory Stable from Hospitalist standpoint. We will sign off. Reconsult as needed. Problem Qualifiers (1) Alzheimer's dementia with behavioral disturbance: Qualified Codes: G30.1 - Alzheimer's disease with late onset; F02.81 - Dementia in other diseases classified elsewhere with behavioral disturbance Jodi Lizama Sep 25, 2017 15:52
[2017-09-25 16:30] LABS: HEMOGLOBIN A1C 5.5 % (4.3-6.0)
[2017-09-26 05:38] VITALS: BP 142/68; PULSE 64; RESP 16; TEMP 97.6; O2SAT 99
[2017-09-26] MEDS: METOPROLOL SUCCINATE 50 MG EXTENDED RELEASE TAB PO SCH (09:00)
[2017-09-26] MEDS: CHOLECALCIFEROL (VIT D3) 5000 UNIT CAP PO SCH (09:00)
[2017-09-26] MEDS: amLODIPine BESYLATE 5 MG TAB PO SCH (09:00)
--- NOTE | 2017-09-26 12:29 | HHI.PYPN ---
Subjective Remarks Patient seen in day room with nurse Sandra, chart review, patient compliant medication Intrusive continues diffusely disoriented and confusing. Getting somewhat irritable angry with me and attempted to make sense of some of statements related to her living situation and her children. Patient is been no behavioral problems on the unit. For now continue treatment we need to get further information from family as soon as possible Review of Systems Except as stated in HPI: all other systems reviewed are Neg Mental Status Examination Appearance: Disheveled Consciousness: Alert Orientation: Person Motor Activity: Normal gait Speech: Hesitant Language: Other Fund of Knowledge: Inadequate Attention and Concentration: Easily Distracted Memory: Impaired Mood: Anxious Affect: Anxious Thought Process & Associations: Circumstantial, Disorganized, Tangential, Other Thought Content: Bizarre thinking, Preoccupations Hallucination Type: None Delusion Type: None Suicidal Ideation: No Suicidal Plan: No Suicidal Intention: No Homicidal Ideation: No Homicidal Plan: No Homicidal Intention: No Insight: Poor Judgment: Poor Results Labs Date/Time Source Procedure Growth Status 09/23/17 19:43 Urine Random Urine Urine Culture - Final 10-50,000 CFU/ML MIXED GRAM POSITIVE ... Complete Vitals/IOs Vital Signs Date Time Temp Pulse Resp B/P (MAP) Pulse Ox O2 Delivery O2 Flow Rate FiO2 09/26/17 05:38 97.6 64 16 142/68 (92) 99 09/24/17 09:50 Room Air Intake and Output 09/26/17 09/26/17 09/27/17 08:00 16:00 00:00 Intake Total 120 ml Balance 120 ml Assessment & Plan Problem List: (1) Alzheimer's dementia with behavioral disturbance ICD Codes: G30.9 - Alzheimer's disease, unspecified; F02.81 - Dementia in other diseases classified elsewhere with behavioral disturbance (2) Dementia in other diseases classified elsewhere with behavioral disturbance ICD Codes: F02.81 - Dementia in other diseases classified elsewhere with behavioral disturbance Assessment & Plan Estimated LOS: days patient continues blunted confused somewhat irritable and demanding with no insight. Justification for Cont. Inpt. At this time patient will decompensate placed a lower level of care Discharge Planning When we get further contact patient's family to help placement of this lady Request HC Surrog/Guard Advoc?: Yes Problem Qualifiers (1) Alzheimer's dementia with behavioral disturbance: Qualified Codes: G30.1 - Alzheimer's disease with late onset; F02.81 - Dementia in other diseases classified elsewhere with behavioral disturbance Hernandez Bauer MD Sep 26, 2017 12:29
[2017-09-26] MEDS: NITROFURANTOIN MONOHYD MACROCR 100 MG CAP PO SCH ×2 (12:38→18:31)
[2017-09-26 17:39] VITALS: BP 140/62; PULSE 65; RESP 16; TEMP 97.6; O2SAT 97
[2017-09-27 06:00] VITALS: BP 129/69; PULSE 73; RESP 16; TEMP 97.7; O2SAT 95
[2017-09-27] MEDS: METOPROLOL SUCCINATE 50 MG EXTENDED RELEASE TAB PO SCH (09:02)
[2017-09-27] MEDS: NITROFURANTOIN MONOHYD MACROCR 100 MG CAP PO SCH ×2 (09:02→18:00)
[2017-09-27] MEDS: CHOLECALCIFEROL (VIT D3) 5000 UNIT CAP PO SCH (09:04)
[2017-09-27] MEDS: amLODIPine BESYLATE 5 MG TAB PO SCH (09:04)
--- NOTE | 2017-09-27 15:22 | HHI.PYPN ---
Subjective Remarks Patient was seen and case discussed with nursing. Patient is perseverative on discharge. Insight remains poor she minimizes her behavior before admission. Thought processes disorganized. She is confused and oriented 1. She is cold feeling wonderful." She is tearful at times during the interview. Denies suicidal or homicidal ideation intent or plan Mental Status Examination Appearance: Disheveled Consciousness: Alert Orientation: Person Motor Activity: Normal gait Speech: Hesitant Language: Other Fund of Knowledge: Inadequate Attention and Concentration: Easily Distracted Memory: Impaired Mood: Anxious Affect: Other (tearful) Thought Process & Associations: Circumstantial, Disorganized, Tangential, Other Thought Content: Bizarre thinking, Preoccupations Hallucination Type: None Delusion Type: None Suicidal Ideation: No Suicidal Plan: No Suicidal Intention: No Homicidal Ideation: No Homicidal Plan: No Homicidal Intention: No Insight: Poor Judgment: Poor Results Labs Date/Time Source Procedure Growth Status 09/23/17 19:43 Urine Random Urine Urine Culture - Final 10-50,000 CFU/ML MIXED GRAM POSITIVE ... Complete Vitals/IOs Vital Signs Date Time Temp Pulse Resp B/P (MAP) Pulse Ox O2 Delivery O2 Flow Rate FiO2 09/27/17 06:00 97.7 73 16 129/69 (89) 95 09/24/17 09:50 Room Air Intake and Output 09/27/17 09/27/17 09/28/17 08:00 16:00 00:00 Intake Total 480 ml Balance 480 ml Assessment & Plan Problem List: (1) Alzheimer's dementia with behavioral disturbance ICD Codes: G30.9 - Alzheimer's disease, unspecified; F02.81 - Dementia in other diseases classified elsewhere with behavioral disturbance (2) Dementia in other diseases classified elsewhere with behavioral disturbance ICD Codes: F02.81 - Dementia in other diseases classified elsewhere with behavioral disturbance Assessment & Plan Continue current treatment plan Justification for Cont. Inpt. Patient would decompensate in a less restrictive setting Request HC Surrog/Guard Advoc?: Yes Problem Qualifiers (1) Alzheimer's dementia with behavioral disturbance: Qualified Codes: G30.1 - Alzheimer's disease with late onset; F02.81 - Dementia in other diseases classified elsewhere with behavioral disturbance Brien Reid DO Sep 27, 2017 15:22
[2017-09-27 17:50] VITALS: BP 149/72; PULSE 70; RESP 18; TEMP 97.4
--- NOTE | 2017-09-29 07:52 | HHI.DS ---
Psychiatry Discharge Summary Inpatient Psychiatric care?: Yes Advance Directive: No Reason Not Provided: . Mental Health AdvanceDirective: No Health Care Proxy: No Admission Admission Date Sep 24, 2017 at 11:12 Admission Diagnosis: (1) Dementia in other diseases classified elsewhere with behavioral disturbance ICD Code: F02.81 - Dementia in other diseases classified elsewhere with behavioral disturbance (2) Alzheimer's dementia with behavioral disturbance ICD Code: G30.9 - Alzheimer's disease, unspecified; F02.81 - Dementia in other diseases classified elsewhere with behavioral disturbance Brief History 77-year-old female presents at the request of her psychologist, for evaluation. Patient described worsening symptoms of confusion and difficulty performing activities of daily living. At the same time, the patient was repeatedly driving an automobile, living on her own and possibly medicating herself with too much Xanax. Family members became concerned. Upon interview, the patient is obviously suffering from dementia. She has significant word finding difficulty, obvious short term memory problems, disorientation to place and situation and time, etc. She tells this physician she has driven to the hospital on 2 previous occasions but when she arrives she doesn't know why she is here. The validity of her comments is in question because the patient does not know where "here" is. The patient does continue to drive a car and this physician feels that is very dangerous to herself and others. The patient cannot name the city in which she is currently being seen by this physician. She denies the current use of alcohol but states she used to drink and that her family has many alcoholics. She is also concerned about the amount of Xanax she takes but she is unable to recall any doses, frequency, etc. She admits to experiencing depression and anxiety as well. Tobacco Use In Past 30 Days: No Tobacco Past 30 Days Alcohol Use: Never Hospital Course Patient's initial hospital course was significant for the patient's significant cognitive deficits, also her little insight into the illness. Was a conversation with the patient's friend was concerned about her functional ability. However after I left the hospital on 09/26 I received a phone call from patient's biological daughter Kathrine rivera at [phone]. The daughter was out of town on business when she became aware of her mother being hospitalized. The daughter was somewhat distraught and somewhat angry that she was hospitalized. I talked with the daughter for 30+ minutes about diagnosis procedures [place] law and our need to keep focus were impaired safe. The daughter did calm down saying choosing transits from the [facility] to [place] and they should arrive early on 09/27. I agreed to write the discharge order for her to take her mother home. The daughter stated she would take full responsibility for her mother that she had 2 adult children that would assist in other family members that would assist her while she was working. She stated she felt quite safe and confident that she could care for her mother. I placed the discharge orders and from my home. It appears there is a glitch in those discharge orders. The daughter arrived around 4 or 5 PM on Tuesday 09/26. I was paged and I gave verbal orders for the patient to be discharged to her daughter however I did feel that we do not do as much of her workup as I would have thought necessary including neurology consultation. Thus I asked the daughter to sign her mother out a.m. a. The daughter was willing to do this. I also recommended follow them with her primary care physician. There is no Rx by me. He also stated that if there was any difficulty with patient's behavior subsequent to discharge that the daughter would be free to return her mother to the [facility] ED for psychiatric screening and assessment Results Blood Pressure 149 / 72 Vital Signs Date Time Temp Pulse Resp B/P (MAP) Pulse Ox O2 Delivery O2 Flow Rate FiO2 09/27/17 17:50 97.4 70 18 149/72 (97) 09/27/17 06:00 95 Laboratory Results Test 09/25/17 07:37 Cholesterol Level 192 MG/DL (120-200) HDL Cholesterol 72.6 MG/DL (40.0-60.0) Hemoglobin A1c 5.5 % (4.3-6.0) LDL Cholesterol 105 MG/DL (0-99) Triglycerides Level 70 MG/DL (42-150) Summary of Procedures None done Imaging Last Impressions Head CT 09/23/171917 Signed Impressions: Service Date/Time: Saturday, September 23, 2017 19:28 - CONCLUSION: 1. No acute intracranial abnormality. 2. Extensive chronic small vessel ischemic change. 3. Atrophy. Shankar Chairez Jr., MD Pending results at discharge: No Medications # of Antipsychotic meds at D/C: 0 Approp Antipsych med options 1 - Minimum of three failed multiple trials of monotherapy. 2 - Documented plan to taper to monotherapy due to previous use of multiple meds OR cross-taper in progress at D/C. 3 - Documentation of augmentation of Clozapine. 4 - Justification other than those listed in allowable values 1-3, document here : Discharge Discharge Date: Sep 27, 2017 Discharge Diagnosis: (1) Dementia in other diseases classified elsewhere with behavioral disturbance Diagnosis: Principal ICD Code: F02.81 - Dementia in other diseases classified elsewhere with behavioral disturbance (2) Alzheimer's dementia with behavioral disturbance Diagnosis: Principal ICD Code: G30.9 - Alzheimer's disease, unspecified; F02.81 - Dementia in other diseases classified elsewhere with behavioral disturbance Pt Condition on Discharge: Stable Discharge Disposition: Discharge Home Discharge Instructions Diet Instructions: As Tolerated, No Restrictions Activities you can perform: Regular-No Restrictions Scheduled Appointment: PCP Discharge Time > 30 minutes Mental Status Examination Appearance: Disheveled Consciousness: Alert Orientation: Person Motor Activity: Normal gait Speech: Hesitant Language: Other Fund of Knowledge: Inadequate Attention and Concentration: Easily Distracted Memory: Impaired Mood: Anxious Affect: Other (tearful) Thought Process & Associations: Circumstantial, Disorganized, Tangential, Other Thought Content: Bizarre thinking, Preoccupations Hallucination Type: None Delusion Type: None Suicidal Ideation: No Suicidal Plan: No Suicidal Intention: No Homicidal Ideation: No Homicidal Plan: No Homicidal Intention: No Insight: Poor Judgment: Poor Discharge/Advance Care Plan Health Problems: (1) Alzheimer's dementia with behavioral disturbance (2) Dementia in other diseases classified elsewhere with behavioral disturbance Goals to promote your health * To prevent worsening of your condition and complications * To maintain your health at the optimal level Directions to meet your goals Take your medications as prescribed Follow your dietary instruction Follow activity as directed Keep your appointments as scheduled Take your immunizations and boosters as scheduled If your symptoms worsen call your PCP, if no PCP go to Urgent Care Center or Emergency Room For 31/03 questions related to your inpatient stay or results of tests pending at discharge, please contact Dr. Hernandez Bauer at Smoking is Dangerous to Your Health. Avoid second hand smoking Problem Qualifiers (1) Alzheimer's dementia with behavioral disturbance: Qualified Codes: G30.1 - Alzheimer's disease with late onset; F02.81 - Dementia in other diseases classified elsewhere with behavioral disturbance Hernandez Bauer MD Sep 29, 2017 07:52
== END 2017-09-27 17:40 | disposition left against medical advice (07) | DRG 57 ==
LOC: NEPJ 15:48 → NEDA 09-24 11:12 → H250 09-24 12:45
PROVIDERS: ADMIT Psychiatry & Neurology Psychiatry; ATTEND Psychiatry & Neurology Psychiatry
DX: G30.1 Alzheimer's disease with late onset (principal); F02.81 Dementia in other diseases classified elsewhere, unspecified severity, with behavioral disturbance; N39.0 Urinary tract infection, site not specified; I10 Essential (primary) hypertension; M06.9 Rheumatoid arthritis, unspecified; M19.90 Unspecified osteoarthritis, unspecified site; E55.9 Vitamin D deficiency, unspecified; Z87.442 Personal history of urinary calculi; Z81.1 Family history of alcohol abuse and dependence
CPT/HCPCS: 70450; 80053; 80061; 80307; 81001; 82306; 82607; 83036; 83735; 84100; 84439; 84443; 85025; 87086; 93005